=== PATIENT | female | born 1965 | race Caucasian/White ===

== ENCOUNTER → 2016-06-23 | Outpatient (CLI) | payer BC ==
[~2016-06-23] MED LIST: ALBU1AER9 INH; EFF/375 PO; IBUP-1427 PO; LOSA1TAB38 PO; METO25TA56 PO; TAMO20TA47 PO
[2016-06-23 16:43] LABS: BASO % 0.2 %; BASO ABS # 0.01 K/uL (0-0.2); COMPLETE YES; EOS % 1.3 %; HEMATOCRIT 37.7 % (37-47); IG% 0.2 %; LYMPH % 24.9 %; LYMPH ABS # 1.54 K/uL (1.2-3.4); MEAN CELL VOLUME 87.5 fL (80-100); MEAN CORPUSCULAR HEMOGLOBIN 29.2 pg (25-34); MEAN CORPUSCULAR HGB CONC 33.4 g/dl (32-36); MEAN PLATELET VOLUME 10.6 fL (7.4-10.4); NEUT % 63.4 %; PLATELET COUNT 180 K/uL (130-400); RED BLOOD COUNT 4.31 M/uL (4.2-5.4); WHITE BLOOD COUNT 6.18 K/uL (4.8-10.8)
[2016-06-23 17:14] LABS: ALT/SGPT 16 U/L (12-78); BLOOD UREA NITROGEN 22 mg/dl (7-18); BUN/CREATININE RATIO 22.6 (10-20); CALCIUM 8.5 mg/dl (8.5-10.1); CARBON DIOXIDE 25 mmol/L (21-32); CHLORIDE 107 mmol/L (98-107); CREATININE 0.98 mg/dl (0.60-1.20); GLUCOSE 98 mg/dl (70-99); POTASSIUM 4.1 mmol/L (3.5-5.1); SODIUM 141 mmol/L (136-145)
[2016-06-23 17:17] LABS: ALB/GLOB RATIO 0.8 (0.9-2); ALKALINE PHOSPHATASE 55 U/L (45-117); AST/SGOT 13 U/L (15-37)
[2016-06-24 06:48] LABS: ESTIMATED AVERAGE GLUCOSE 114 mg/dl; HA1C FLAG Normal (Normal)
== END | disposition home or self-care (01) ==
LOC: C.LAB1850 15:53
PROVIDERS: ATTEND Obstetrics & Gynecology
DX: R39.9 Unspecified symptoms and signs involving the genitourinary system (principal); R73.03 Prediabetes; N95.1 Menopausal and female climacteric states

== ENCOUNTER → 2016-06-23 | Outpatient (CLI) | payer BC | END | disposition home or self-care (01) | LOC: C.PAPS 09:44 | PROVIDERS: ATTEND Obstetrics & Gynecology | DX: Z01.419 Encounter for gynecological examination (general) (routine) without abnormal findings (principal) ==

== ENCOUNTER → 2016-08-29 | Outpatient (CLI) | payer BC ==
[~2016-08-29] MED LIST changes: -TAMO20TA47 PO; +TAMO20TA9 PO
[2016-08-29 12:19] LABS: CHOLESTEROL/HDL RATIO 4.8
== END | disposition home or self-care (01) ==
LOC: C.LABBFT 09:47
PROVIDERS: ATTEND Internal Medicine
DX: E78.5 Hyperlipidemia, unspecified (principal)

== ENCOUNTER → 2016-10-05 | Outpatient (CLI) | payer BC ==
[~2016-10-05] MED LIST changes: +GADAVIST IV PRN
--- NOTE | 2016-10-05 10:16 | DIAGNOSTIC IMAGING REPORT ---
MRI OF THE BRAIN AND IACS WITHOUT AND WITH IV CONTRAST CLINICAL HISTORY: Hearing loss right ear. Neck mass. COMPARISON STUDY: No previous studies for comparison. TECHNIQUE: MRI of the brain was performed from the vertex to the skull base utilizing various T1 and T2 weighted sequences. Following the IV administration of 9.5 mL of Gadavist contrast, additional enhanced images were obtained. The patient was imaged under 0.7 Rose open MRI scanner FINDINGS: Sagittal T1, axial diffusion, proton density and T2 weighted axial, coronal FLAIR, and pre and post axial T1-weighted images were acquired. These were supplemented with post gadolinium coronal T1 weighted images. No intra or extra-axial mass lesions are visualized. Axial diffusion-weighted images reveal no evidence of acute or subacute infarction. There is no evidence of ventricular dilatation. Proton density T2-weighted and FLAIR images reveal bilateral cerebellar lacunar infarcts. There are no abnormal flow voids. There is no evidence of pathologic enhancement. No cerebellopontine angle masses are visualized. There are no findings to indicate acoustic neuroma. IMPRESSION: 1. No evidence of acute or subacute infarction 2. No pathologic masses. No evidence of an acoustic neuroma 3. Small foci of increased T2 signal within the cerebellum, likely secondary to a remote insult. Electronically signed by: Yousuf To M.D. 10/05/2016 10:15 AM Dictated Date/Time: 10/05/2016 10:12 AM
== END | disposition home or self-care (01) ==
LOC: C.OPENMRI 08:27
PROVIDERS: ATTEND Physician Assistant
DX: H91.8X1 Other specified hearing loss, right ear (principal); R22.1 Localized swelling, mass and lump, neck

== ENCOUNTER → 2016-10-05 | Outpatient (CLI) | payer BC ==
[~2016-10-05] MED LIST changes: -GADAVIST IV PRN; +OPTIRAY 320 IV PRN
--- NOTE | 2016-10-05 11:04 | DIAGNOSTIC IMAGING REPORT ---
CT soft tissue neck SOFT TISSUE NECK COMBO CLINICAL HISTORY: R22.1 Neck mass LEFT CERVICAL LYMPH NODE. PLEASE COMPARE TO 2009 neck mass. TECHNIQUE: Transaxial acquisition pre and postcontrast administration. Multi axial reformatted images. COMPARISON STUDY: 01/29/2009 FINDINGS: Stable intraparotid benign lymph nodes. These are stable compared to the prior exam. No new or interval finding. Several small cervical nodes bilaterally unchanged from the prior exam. There are no new or interval findings. Aryepiglottic and subglottic regions are unremarkable. There is no evidence for airway compromise. BI-RADS symmetric. IMPRESSION: 1. Several small nodes in the cervical chains bilaterally unaltered from the prior study. 2. Given the stability compared to 2008, these are felt to be benign or reactive. 3. No evidence for new or interval dominant mass or collection. Electronically signed by: Gigi Aguilar M.D. 10/05/2016 11:02 AM Dictated Date/Time: 10/05/2016 10:57 AM
== END | disposition home or self-care (01) ==
LOC: C.CTS 10:12
PROVIDERS: ATTEND Physician Assistant
DX: R22.1 Localized swelling, mass and lump, neck (principal)

== ENCOUNTER → 2016-11-15 | Outpatient (CLI) | payer BC ==
[~2016-11-15] MED LIST changes: -OPTIRAY 320 IV PRN; +TAMO20TA47 PO; -TAMO20TA9 PO
--- NOTE | 2016-11-15 13:29 | MAMMOGRAPHY REPORT ---
BILATERAL DIGITAL DIAGNOSTIC MAMMOGRAM TOMOSYNTHESIS WITH CAD: 11/15/2016 CLINICAL HISTORY: 51-year-old woman with a personal history of right breast cancer status post breast conservation therapy 2 years ago. She presents for bilateral mammography. TECHNIQUE: Bilateral breast tomosynthesis in addition to standard 2D mammography was performed. Spot magnification right CC and ML views were also obtained. Current study was also evaluated with a [employer] Aided Detection (CAD) system. COMPARISON: Comparison is made to exams dated: 05/17/2016 mammogram, 11/16/2015 mammogram, 04/21/2015 ultrasound, 04/21/2015 mammogram, 10/02/2014 mammogram, and 10/02/2014 ultrasound biopsy - [facility]. BREAST COMPOSITION: There are scattered areas of fibroglandular density in both breasts. FINDINGS: There are expected posterior changes in the right breast from prior lumpectomy and radiati on therapy. There is persistent trabecular edema, not significantly changed compared to the April 2016 mammograms. There are stable surgical clips in the anterior right breast and benign-appearing reticular calcifications in the posterior retroareolar right breast. No new suspicious mass, archite ctural distortion or cluster of microcalcifications is seen in the right breast. The left breast parenchyma pattern is similar to prior mammograms. No calcifications are currently i dentified in the area of previously observed microcalcifications in the anterior, slightly inferior l eft breast. This confirms benignity. No new suspicious mass, architectural distortion, asymmetry or suspicious calcifications are identified in the left breast. IMPRESSION: ACR BI-RADS CATEGORY 2: BENIGN Stable bilateral mammograms, including posterior changes in the right breast, without evidence of mal ignancy bilaterally. Recommend bilateral diagnostic mammography in 12 months including repeat spot m agnification views of the right breast. These results and recommendations were discussed with the patient at the time of the exam. Approximately 10% of breast cancers are not detected with mammography. A negative mammographic report should not delay biopsy if a clinically suggestive mass is present. Doretha Be M.D. ay/:11/15/2016 12:28:12 [employer]: Natacha Lind, [facility] letter sent: Normal 1/2 BI-RADS Code: ACR BI-RADS Category 2: Benign
== END | disposition home or self-care (01) ==
LOC: C.MAMM 10:32
PROVIDERS: ATTEND Surgery
DX: Z85.3 Personal history of malignant neoplasm of breast (principal); Z08 Encounter for follow-up examination after completed treatment for malignant neoplasm

== ENCOUNTER → 2017-02-28 | Outpatient (CLI) | payer BC ==
[2017-02-28 17:46] LABS: BLOOD UREA NITROGEN 19 mg/dl (7-18); CREATININE 0.95 mg/dl (0.60-1.20); GLUCOSE 79 mg/dl (70-99)
[2017-02-28 17:47] LABS: CALCIUM 9.3 mg/dl (8.5-10.1); CARBON DIOXIDE 27 mmol/L (21-32); CHLORIDE 107 mmol/L (98-107); CHOLESTEROL 136 mg/dl (0-200); POTASSIUM 3.5 mmol/L (3.5-5.1); SODIUM 140 mmol/L (136-145); TRIGLYCERIDES 180 mg/dl (0-150); VERY LOW DENSITY LIPOPROT CALC 36 mg/dl
[2017-02-28 17:49] LABS: CHOLESTEROL/HDL RATIO 4.5; HDL CHOLESTEROL 30 mg/dl; LDL CHOLESTEROL CALCULATED 70 mg/dl
[2017-03-01 07:54] LABS: ESTIMATED AVERAGE GLUCOSE 117 mg/dl; HA1C FLAG Normal (Normal)
== END | disposition home or self-care (01) ==
LOC: C.LAB1850 16:36
PROVIDERS: ATTEND Internal Medicine Cardiovascular Disease
DX: R73.03 Prediabetes (principal); N94.6 Dysmenorrhea, unspecified; I10 Essential (primary) hypertension; E78.00 Pure hypercholesterolemia, unspecified

== ENCOUNTER → 2017-03-07 | Outpatient (CLI) | payer BC ==
[2017-03-07 17:29] LABS: BASO % 0.1 %; BASO ABS # 0.01 K/uL (0-0.2); COMPLETE YES; EOS % 1.4 %; HEMATOCRIT 37.4 % (37-47); IG% 0.3 %; LYMPH % 23.8 %; MEAN CELL VOLUME 90.3 fL (80-100); MEAN CORPUSCULAR HEMOGLOBIN 29.5 pg (25-34); MEAN CORPUSCULAR HGB CONC 32.6 g/dl (32-36); MEAN PLATELET VOLUME 10.3 fL (7.4-10.4); MONO % 8.3 %; NEUT % 66.1 %; PLATELET COUNT 200 K/uL (130-400); RED BLOOD COUNT 4.14 M/uL (4.2-5.4); WHITE BLOOD COUNT 7.15 K/uL (4.8-10.8)
== END | disposition home or self-care (01) ==
LOC: C.LABBFT 14:30
PROVIDERS: ATTEND Internal Medicine
DX: R53.83 Other fatigue (principal)

== ENCOUNTER → 2017-05-04 | Outpatient (CLI) | payer BC ==
[~2017-05-04] MED LIST changes: +HYDR25TA5 PO; -TAMO20TA47 PO; +TAMO20TA9 PO
[2017-05-04 13:02] VITALS: BP 115/79; PULSE 79; TEMP 36.8; O2SAT 97
--- NOTE | 2017-05-04 14:22 | Radiation Oncology Follow-Up ---
Radiation Oncology Follow-Up Date of Visit May 04, 2017. Reason For Visit Annual follow-up Radiation Completion Date APBI - 12/05/14 Diagnosis (1) Malignant neoplasm of upper-inner quadrant of female breast Status: Resolved Onset Date: 10/02/2014 Histology Subtype: ductal Permanent Comment: Abnormal right breast mammogram Status post core needle biopsy 10/02/2014 revealing invasive ductal carcinoma grade 1 Estrogen receptor positive, progesterone receptor positive, HER-2/donta negative Status post needle localization partial mastectomy and sentinel lymph node biopsy 10/17/2014 Stage [id number] Status post completion of radiation therapy 12/05/2014 utilizing accelerated partial breast treatment received 3850 cGy Last Edited By: Sharonda Paul on Dec 19, 2014 09:05 History of Present Illness Ms. Awad is without a family history of breast cancer. She has been followed with serial screening mammograms. On 09/18/2014 patient underwent bilateral digital screening mammogram. These were compared to prior exams from 08/29/2013. This showed a small nodular asymmetry in the right breast on the CC view as well as a nodular asymmetry in the right superior breast seen on the MLO view middle depth. Additional imaging was recommended. On 09/26/2014 the patient underwent a unilateral right digital diagnostic mammogram and targeted right ultrasound. This revealed the persistence of a dense irregular mass with spiculated margins in the upper inner anterior right breast measuring 0.8 x 1.2 cm. There was a new triangular palpable skin area in the lower inner quadrant of the right breast which correlates with stable epidermal inclusion cyst. Targeted ultrasound was performed of the right upper inner quadrant to evaluate the mammographic asymmetry as well as in the area of the palpable area of concern as pointed out by the patient at the 4 o'clock position of the right breast 4 cm from the nipple. This latter position and elongated hypoechoic region within the dermis was noted which agreed with an epidural inclusion cyst. No further workup of this lesion was needed. In the 12:30 position of the right breast 3 cm from the nipple a spiculated hypoechoic vascular mass was noted measuring 1.2 x 0.96 x 1.0 cm On 10/02/2014 the patient underwent an ultrasound-guided biopsy of the right breast. This was biopsy of the 12:30 position 3 cm in the nipple. This revealed an invasive ductal carcinoma Red grade 1 of 3 with no lymphovascular or perineural invasion identified. Estrogen receptors were positive (100%, strong intensity, H score = 300). Progesterone receptors were positive (100%, strong intensity, H score = 300). HER-2/donta overexpression was negative by IHC and confirmed negative by FISH analysis. The Ki-67 proliferation index was low at 7% . Case: [id number]. Patient met with Dr. Hunter to discuss treatment options. The patient agreed to proceed with breast conserving therapy. Therefore on 10/17/2014 the patient underwent a right partial mastectomy and sentinel node biopsy. The partial mastectomy specimen confirmed residual invasive ductal carcinoma, Red grade 1 of 3. The tumor measured 1.5 cm without lymphovascular or perineural invasion identified. DCIS was present, solid and cribriform, intermediate nuclear grade with no comedonecrosis. The margins were evaluated and were negative for DCIS and invasive carcinoma. Additional margins confirmed excellent negative margin status. One sentinel lymph node was identified and was negative on H&E and by pankeratin immunostains. Final AJCC pathologic stage was therefore pT1c pN0(i-), ER positive, [place] positive HER-2/donta negative. Case: [id number]. Given the favorable findings patient was not felt to be at candidate for systemic chemotherapy. She is a candidate for adjuvant antiestrogen therapy and will start on tamoxifen following the completion of the radiation. We were asked to see her to discuss with her the role of radiation. She underwent a CT simulation was found to be a candidate for accelerated partial breast treatment. This was completed 12/05/2014. She received 3850 cGy Interim History She has a complaint of a tight feeling of the upper central portion of the breast in the area of treatment. There is firmness in this area. She describes this as "an uncomfortable feeling". She does not give this a pain level. She has noted no new masses or changes of the axilla. She's had no swelling of her arm. She is up-to-date on mammography. She was recently seen by Dr. Hunter. She has had some issues with fatigue and saw her primary care physician. She was found to have a low vitamin D level. She was on replacement and will be having follow-up laboratory studies. Allergies Coded Allergies: Sulfa Antibiotics (Unverified Adverse Reaction, Mild, RASH, 6/23/15) Home Medications Scheduled Hydrochlorothiazide (Hydrochlorothiazide), 1-2 TAB PO DAILY Losartan Potassium (Cozaar), 1 TAB PO DAILY Metoprolol Tartrate (Lopressor) (Lopressor), 1 TAB PO BID Tamoxifen (Nolvadex), 20 MG PO DAILY Scheduled PRN Albuterol Sulfate (Proair Hfa), 2 PUFF INH Q4 PRN for SOB/Wheezing Ibuprofen Tab (Motrin), 1 TAB PO TID PRN for Pain Review of Systems Gastrointestinal: Symptoms: WNL Oral: Symptoms: No Problems Respiratory: Symptoms: WNL Urinary: Symptoms: WNL Skin: Symptoms: No Problems Other Skin Symptoms: Hard at incisions Breast: Right Upper Arm Measurement: 31.2 Right Mid Arm Measurement: 24.6 Right Wrist Measurement: 16.3 Left Upper Arm Measurement: 31.5 Left Mid Arm Measurement: 24.5 Left Wrist Measurement: 16.2 Arm Dominence: Right Physical Exam Vital Signs Date Time Temp Pulse Resp B/P (MAP) Pulse Ox O2 Delivery O2 Flow Rate FiO2 05/04/17 13:02 36.8 79 16 115/79 97 Fatigue: None General Appearance: no apparent distress Eyes: normal inspection, EOMI ENT: normal ENT inspection, hearing grossly normal Neck: no adenopathy, thyroid normal Respiratory/Chest: lungs clear, no respiratory distress, no accessory muscle use Breast: There is a large area of fibrous tissue in the central upper portion of the right breast. This is nontender. There are overlying skin changes with mild erythema. There is mild edema. There are no distinct masses. There is no axillary adenopathy. Using the Megargel score cosmesis she has a a fair outcome. Left breast showed no masses or tenderness no axillary adenopathy. Cardiovascular: regular rate, rhythm, no gallop, + systolic murmur (2/6 turned best at the aortic area) Abdomen: non tender, soft Extremities: no pedal edema Neurologic/Psychiatric: no motor/sensory deficits, alert, normal mood/affect Skin: no rash Pain Management Patient Reports Pain: No Pain Management Plan She denies pain therefore does not require pain management. Pathology Pathology Results: not applicable Imaging Imaging Studies: were reviewed, and pertinent findings noted below Imaging Comments Patient: ROBIN AWAD [facility] Rec: [id number] Address1: [address] [place] [address] Address2: [facility] ID: [id number] Date: 1965 Sex: F Ref Phy: Raymon Felder M.D. Att Phy: Sher Hunter M.D. Katie Phy: Raymon Felder M.D. Inter Phy: Doretha Be MD [facility] Zip: [place] [address] SC: C.MAMM Report #: [id number] Community Health Agent: NAY Diagnosis: 6 MO F/U BILATERAL Service Date: 11/15/16 MNE: [id number] Ordering Dr: Sher Hunter M.D. CC: Sher Hunter M.D. CONF: DICTATED BY: Doretha Be MD MAMMOGRAPHY REPORT BILATERAL DIGITAL DIAGNOSTIC MAMMOGRAM TOMOSYNTHESIS WITH CAD: 11/15/2016 CLINICAL HISTORY: 51-year-old woman with a personal history of right breast cancer status post breast conservation therapy 2 years ago. She presents for bilateral mammography. TECHNIQUE: Bilateral breast tomosynthesis in addition to standard 2D mammography was performed. Spot magnification right CC and ML views were also obtained. Current study was also evaluated with a Computer Aided Detection (CAD ) system. COMPARISON: Comparison is made to exams dated: 05/17/2016 mammogram, 11/16/2015 mammogram, 04/21/2015 ultrasound, 04/21/2015 mammogram, 10/02/2014 mammogram, and ultrasound biopsy - [facility]. BREAST COMPOSITION: There are scattered areas of fibroglandular density in both breasts. FINDINGS: There are expected posterior changes in the right breast from prior lumpectomy and radiation therapy. There is persistent trabecular edema, not significantly changed compared to the April 2016 mammograms. There are stable surgical clips in the anterior right breast and benign-appearing reticular calcifications in the posterior retroareolar right breast. No new suspicious mass, architectural distortion or cluster of microcalcifications is seen in the right breast. The left breast parenchyma pattern is similar to prior mammograms. No calcifications are currently identified in the area of previously observed microcalcifications in the anterior, slightly inferior left breast. This confirms benignity. No new suspicious mass, architectural distortion, asymmetry or suspicious calcifications are identified in the left breast. IMPRESSION: ACR BI-RADS CATEGORY 2: BENIGN Stable bilateral mammograms, including posterior changes in the right breast, without evidence of malignancy bilaterally. Recommend bilateral diagnostic mammography in 12 months including repeat spot magnification views of the right breast. These results and recommendations were discussed with the patient at the time of the exam. Approximately 10% of breast cancers are not detected with mammography. A negative mammographic report should not delay biopsy if a clinically suggestive mass is present. Doretha Be M.D. ay/:11/15/2016 12:28:12 Operating Room Nurse: Natacha Lind, [facility] letter sent: Normal 1/2 BI-RADS Code: ACR BI-RADS Category 2: Benign Dictated by: Doretha Be MD Signed by: Doretha Be MD Assessment & Plan Plan: Continue annual mammography. Continue regular follow-up with the breast surgeon and primary care physician. We discussed the area of scar tissue. She is going to try light massage to the scar tissue as well as the breast around this area. We discussed that over time it is hoped that the fibrous tissue will improve. We discussed possible excision of the fibrous tissue if this becomes increasingly painful. She is not in favor of any surgery to this area currently. We asked her to return to our office in 1 year. She may call if she has any questions or concerns in the interim. Total Time In Follow-Up I spent 20 minutes speaking to the patient and performing examination. I spent 15 minutes reviewing information in completing this note. Copy To Sher Hunter M.D.; Raymon Felder M.D. Problem Qualifiers (1) Malignant neoplasm of upper-inner quadrant of female breast: Estrogen receptor status: positive Laterality: right Qualified Codes: C50.211 - Malignant neoplasm of upper-inner quadrant of right female breast; Z17.0 - Estrogen receptor positive status [ER+]
== END | disposition home or self-care (01) ==
LOC: C.ONC 12:43
PROVIDERS: ATTEND Physician Assistant Medical
DX: Z08 Encounter for follow-up examination after completed treatment for malignant neoplasm (principal); Z92.3 Personal history of irradiation; Z85.3 Personal history of malignant neoplasm of breast

== ENCOUNTER → 2017-08-10 | Outpatient (CLI) | payer BC ==
[~2017-08-10] MED LIST changes: -EFF/375 PO
== END | disposition home or self-care (01) ==
LOC: C.LAB1850 15:41
PROVIDERS: ATTEND Internal Medicine
DX: Z01.419 Encounter for gynecological examination (general) (routine) without abnormal findings (principal); E55.9 Vitamin D deficiency, unspecified; N95.1 Menopausal and female climacteric states